=== PATIENT | female | born 1945 | race American Indian/Alaskan Native ===

== ENCOUNTER 2018-03-18 13:01 | Emergency (ER) | payer MEDICARE ==
[2018-03-18 14:00] LABS: Basophils % (Auto) 0.4 % (0.0-1.8); Eosinophils # (Auto) 0.3 K/mm3 (0.0-0.4); Eosinophils % (Auto) 2.9 % (0.0-4.3); Hematocrit 44.3 % (30.3-42.9); Hemoglobin 14.6 gm/dl (10.1-14.3); Lymphocytes # (Auto) 1.7 K/mm3 (1.2-5.4); Lymphocytes % (Auto) 15.2 % (13.4-35.0); Mean Corpuscular HGB Conc 33 % (30-34); Mean Corpuscular Hemoglobin 30 pg (28-32); Mean Corpuscular Volume 91 fl (79-97); Monocytes # (Auto) 0.7 K/mm3 (0.0-0.8); Monocytes % (Auto) 6.4 % (0.0-7.3); Platelet Count 305 K/mm3 (140-440); Red Cell Distribution Width 13.9 % (13.2-15.2)
[2018-03-18 14:18] LABS: Alanine Aminotransferase 8 units/L (7-56); Albumin 2.8 g/dL (3.9-5); BUN/Creatinine Ratio 24; Blood Urea Nitrogen 12 mg/dL (7-17); Calcium 9.6 mg/dL (8.4-10.2); Hemolysis Index 9
[2018-03-18] MEDS ORDERED: ZOFRAN ODT PO PRN (14:39)
--- NOTE | 2018-03-18 14:40 | Emergency Department Report ---
ED General Adult HPI - General Chief complaint: Nausea/Vomiting/Diarrhea Stated complaint: DIARRHEA Time Seen by Provider: 03/18/18 14:15 Source: patient, family, EMS (ems notes not available at time of chart dictation), RN notes reviewed, old records reviewed Mode of arrival: Stretcher Limitations: Physical Limitation - History of Present Illness Initial comments: This is a 73-year-old female who is unknown to this provider previously. Past medical history includes morbid obesity, functional bedbound, congestive heart failure, depression. Patient is brought to the hospital by EMS for inability to care for self. Her daughter indicates that she was recently discharged home from a residential facility. Patient was post to have a special bed at home , as well as home care, which has not materialized. The patient endorses 2 episodes of nonbloody, nonbilious emesis which has since resolved. She describes diarrhea. She had 2 episodes of diarrhea today. The daughter indicates she can't care for the patient on her own. The patient denies headache, neck pain, chest pain, shortness of breath and abdominal pain. -: Gradual Consistency: constant Improves with: none Worsens with: none Associated Symptoms: nausea/vomiting, other (diarrhea). denies: confusion, chest pain, cough, diaphoresis, fever/chills, headaches, loss of appetite, malaise, rash, seizure, shortness of breath, syncope, weakness - Related Data Home Medications Medication Instructions Recorded Confirmed Last Taken Acetaminophen [Arthritis Pain 650 mg PO Q8H 03/18/18 03/18/18 Unknown Relief] Magnesium Hydroxide [Milk of 400 mg PO Q12H PRN 03/18/18 03/18/18 Unknown Magnesia] Omeprazole 20 mg PO QAM 03/18/18 03/18/18 Unknown Sertraline [Zoloft] 12.5 mg PO QDAY 03/18/18 03/18/18 Unknown Triamcinolone 0.1% [Kenalog 0.1% 1 applic TP TID PRN 03/18/18 03/18/18 Unknown CREAM] Zolpidem Tartrate [Ambien] 5 mg PO QHS 03/18/18 03/18/18 Unknown traMADol [Ultram] 50 mg PO Q8H PRN 03/18/18 03/18/18 Unknown Previous Rx's Medication Instructions Recorded Last Taken Type Furosemide [Lasix] 40 mg PO DAILY #30 tablet 07/02/14 Unknown Rx Metoprolol [Lopressor TAB] 50 mg PO BID #60 tablet 07/02/14 Unknown Rx Nitrofurantoin [place]/M-Cryst 100 mg PO Q12HR #13 capsule 03/19/18 Unknown Rx [Macrobid CAP] Ondansetron [Zofran Odt] 4 mg PO Q8HR PRN #20 tab.rapdis 03/19/18 Unknown Rx Allergies Allergy/AdvReac Type Severity Reaction Status Date / Time No Known Allergies Allergy Verified 06/27/14 21:50 ED Review of Systems ROS: Stated complaint: DIARRHEA Other details as noted in HPI Comment: All other systems reviewed and negative ED Past Medical Hx - Past Medical History Hx Hypertension: Yes Hx Congestive Heart Failure: Yes Hx Diabetes: Yes ([id number]) Hx Arthritis: Yes (Both shoulder) Hx Kidney Stones: Yes (5 years) Hx HIV: No - Surgical History Additional Surgical History: exploratory uterine surgery-thought it was cancer, but was benign. tubal ligation - Social History Smoking Status: Never Smoker - Medications Home Medications: Home Medications Medication Instructions Recorded Confirmed Last Taken Type Furosemide [Lasix] 40 mg PO DAILY #30 tablet 07/02/14 03/18/18 Unknown Rx Metoprolol [Lopressor TAB] 50 mg PO BID #60 tablet 07/02/14 03/18/18 Unknown Rx Acetaminophen [Arthritis Pain 650 mg PO Q8H 03/18/18 03/18/18 Unknown History Relief] Magnesium Hydroxide [Milk of 400 mg PO Q12H PRN 03/18/18 03/18/18 Unknown History Magnesia] Omeprazole 20 mg PO QAM 03/18/18 03/18/18 Unknown History Sertraline [Zoloft] 12.5 mg PO QDAY 03/18/18 03/18/18 Unknown History Triamcinolone 0.1% [Kenalog 0.1% 1 applic TP TID PRN 03/18/18 03/18/18 Unknown History CREAM] Zolpidem Tartrate [Ambien] 5 mg PO QHS 03/18/18 03/18/18 Unknown History traMADol [Ultram] 50 mg PO Q8H PRN 03/18/18 03/18/18 Unknown History Nitrofurantoin [place]/M-Cryst 100 mg PO Q12HR #13 capsule 03/19/18 Unknown Rx [Macrobid CAP] Ondansetron [Zofran Odt] 4 mg PO Q8HR PRN #20 tab.rapdis 03/19/18 Unknown Rx ED Physical Exam - General Limitations: Physical Limitation General appearance: alert, in no apparent distress - Head Head exam: Present: atraumatic, normocephalic - Eye Eye exam: Present: normal appearance, EOMI. Absent: nystagmus - ENT ENT exam: Present: normal exam, normal orophraynx, mucous membranes moist, normal external ear exam - Neck Neck exam: Present: normal inspection, full ROM - Respiratory Respiratory exam: Present: normal lung sounds bilaterally. Absent: respiratory distress - Cardiovascular Cardiovascular Exam: Present: regular rate, normal rhythm, normal heart sounds. Absent: systolic murmur, diastolic murmur, rubs, gallop - GI/Abdominal GI/Abdominal exam: Present: soft, normal bowel sounds. Absent: distended, tenderness, guarding, rebound, rigid - Rectal Rectal exam: Present: normal inspection, other (solid stool is noted on the posterior gluteal region. There is sacral redness. There is no sacral breakdown.) - Extremities Exam Extremities exam: Present: normal inspection, full ROM, pedal edema, other ( there is no palpable cord. There is a negative Homans sign. The compartments are soft.). Absent: tenderness, calf tenderness - Back Exam Back exam: Present: normal inspection, full ROM. Absent: paraspinal tenderness , vertebral tenderness - Neurological Exam Neurological exam: Present: alert, oriented X3, CN II-XII intact, other ( Extraocular movements intact. Tongue midline. No facial droop. Facial sensation intact to light touch in the V1, V2, V3 distribution bilaterally. 5 and 5 strength in 4 extremities.. Sensation is intact to light touch in 4 extremities.). Absent: motor sensory deficit - Psychiatric Psychiatric exam: Present: normal affect, normal mood - Skin Skin exam: Present: warm, dry, intact, normal color. Absent: rash ED Course Vital Signs 03/18/18 03/18/18 03/18/18 13:16 17:18 22:39 Temperature 97.8 F Pulse Rate 95 H 92 H Respiratory 16 20 20 Rate Blood Pressure 122/51 Blood Pressure 155/83 [Right] O2 Sat by Pulse 92 97 Oximetry 03/18/18 03/19/1803/19/18 22:44 00:00 07:10 Temperature 97.6 F 98.8 F Pulse Rate 92 H 94 H 86 Respiratory 18 18 Rate Blood Pressure 155/83 Blood Pressure 145/87 139/78 [Right] O2 Sat by Pulse 97 97 Oximetry 03/19/18 03/19/18 03/19/18 10:31 14:17 18:46 Temperature 97.3 F L 98.4 F Pulse Rate 89 82 87 Respiratory 18 17 Rate Blood Pressure 159/76 Blood Pressure 139/52 158/67 [Right] O2 Sat by Pulse 95 98 Oximetry - Reevaluation(s) Reevaluation #1: 03/19/18 10:11 The patient has been in the emergency room overnight without any untoward events. She was seen and evaluated by case management. Apparently, the patient was in a residential home, and requested to leave after being there for 2 years. Case management is coordinating for home outpatient resources. They further indicate that the patient's insurance company has denied her claim for a hospital bed. Case management is also going to follow up with the patient's daughter. The patient has remained in the ER overnight without any untoward medical events, medically she is suitable to go home, and I will defer to case management to further manage her various outpatient social issues. ED Medical Decision Making - Lab Data Result diagrams: 03/18/18 13:25 03/18/18 13:25 Vital Signs 03/18/18 13:16 Temperature 97.8 F Pulse Rate 95 H Respiratory 16 Rate Blood Pressure 122/51 O2 Sat by Pulse 92 Oximetry Lab Results 03/18/18 03/18/18 03/18/18 Range/Units 13:25 13:25 14:55 WBC 11.1 H (4.5-11.0) K/mm3 RBC 4.90 (3.65-5.03) M/mm3 Hgb 14.6 H (10.1-14.3) gm/dl Hct 44.3 H (30.3-42.9) % MCV 91 (79-97) fl MCH 30 (28-32) pg MCHC 33 (30-34) % RDW 13.9 (13.2-15.2) % Plt Count 305 (140-440) K/mm3 Lymph % (Auto) 15.2 (13.4-35.0) % [place] % (Auto) 6.4 (0.0-7.3) % Eos % (Auto) 2.9 (0.0-4.3) % Baso % (Auto) 0.4 (0.0-1.8) % Lymph # 1.7 (1.2-5.4) K/mm3 [place] # 0.7 (0.0-0.8) K/mm3 Eos # 0.3 (0.0-0.4) K/mm3 Baso # 0.0 (0.0-0.1) K/mm3 Seg Neutrophils % 75.1 H (40.0-70.0) % Seg Neutrophils # 8.3 H (1.8-7.7) K/mm3 Sodium 142 (137-145) mmol/L Potassium 4.3 (3.6-5.0) mmol/L Chloride 103.5 (98-107) mmol/L Carbon Dioxide 23 (22-30) mmol/L Anion Gap 20 mmol/L BUN 12 (7-17) mg/dL Creatinine 0.5 L (0.7-1.2) mg/dL Estimated GFR > 60 ml/min BUN/Creatinine Ratio 24 % Glucose 124 H (65-100) mg/dL Calcium 9.6 (8.4-10.2) mg/dL Total Bilirubin 0.30 (0.1-1.2) mg/dL AST 15 (5-40) units/L ALT 8 (7-56) units/L Alkaline Phosphatase 78 (35-129) units/L Total Creatine Kinase < 7 L (30-135) units/L Total Protein 7.6 (6.3-8.2) g/dL Albumin 2.8 L (3.9-5) g/dL Albumin/Globulin Ratio 0.6 % Urine Color (Yellow) Urine Turbidity (Clear) Urine pH (5.0-7.0) Ur Specific [place] (1.003-1.030) Urine Protein (Negative) mg/dL Urine Glucose (UA) (Negative) mg/dL Urine Ketones (Negative) mg/dL Urine Blood (Negative) Urine Nitrite (Negative) Urine Bilirubin (Negative) Urine Urobilinogen (<2.0) mg/dL Ur Leukocyte Esterase (Negative) Urine WBC (Auto) (0.0-6.0) /HPF Urine RBC (Auto) (0.0-6.0) /HPF U Epithel Cells (Auto) (0-13.0) /HPF Urine Bacteria (Auto) (Negative) /HPF Urine WBC Clumps /HPF Urine Mucus /HPF Urine Yeast (Budding) /HPF Urine Sperm (WHITING [employer] WORKER) /HPF 03/18/18 Range/Units 15:20 WBC (4.5-11.0) K/mm3 RBC (3.65-5.03) M/mm3 Hgb (10.1-14.3) gm/dl Hct (30.3-42.9) % MCV (79-97) fl MCH (28-32) pg MCHC (30-34) % RDW (13.2-15.2) % Plt Count (140-440) K/mm3 Lymph % (Auto) (13.4-35.0) % [place] % (Auto) (0.0-7.3) % Eos % (Auto) (0.0-4.3) % Baso % (Auto) (0.0-1.8) % Lymph # (1.2-5.4) K/mm3 [place] # (0.0-0.8) K/mm3 Eos # (0.0-0.4) K/mm3 Baso # (0.0-0.1) K/mm3 Seg Neutrophils % (40.0-70.0) % Seg Neutrophils # (1.8-7.7) K/mm3 Sodium (137-145) mmol/L Potassium (3.6-5.0) mmol/L Chloride (98-107) mmol/L Carbon Dioxide (22-30) mmol/L Anion Gap mmol/L BUN (7-17) mg/dL Creatinine (0.7-1.2) mg/dL Estimated GFR ml/min BUN/Creatinine Ratio % Glucose (65-100) mg/dL Calcium (8.4-10.2) mg/dL Total Bilirubin (0.1-1.2) mg/dL AST (5-40) units/L ALT (7-56) units/L Alkaline Phosphatase (35-129) units/L Total Creatine Kinase (30-135) units/L Total Protein (6.3-8.2) g/dL Albumin (3.9-5) g/dL Albumin/Globulin Ratio % Urine Color Yellow (Yellow) Urine Turbidity Clear (Clear) Urine pH 5.0 (5.0-7.0) Ur Specific [place] 1.019 (1.003-1.030) Urine Protein 30 mg/dl (Negative) mg/dL Urine Glucose (UA) Neg (Negative) mg/dL Urine Ketones Tr (Negative) mg/dL Urine Blood Lg (Negative) Urine Nitrite Neg (Negative) Urine Bilirubin Neg (Negative) Urine Urobilinogen 2.0 (<2.0) mg/dL Ur Leukocyte Esterase Sm (Negative) Urine WBC (Auto) > 182.0 H (0.0-6.0) /HPF Urine RBC (Auto) > 182.0 (0.0-6.0) /HPF U Epithel Cells (Auto) 1.0 (0-13.0) /HPF Urine Bacteria (Auto) 1+ (Negative) /HPF Urine WBC Clumps 3+ /HPF Urine Mucus Few /HPF Urine Yeast (Budding) 2+ /HPF Urine Sperm Few (WHITING CAN WORKER) /HPF - Medical Decision Making Differential diagnosis, including the not limited to: Diarrhea, debility urinary tract infection, C. difficile Assessment and plan: 73-year-old female with a primary complaint of diarrhea. On my direct physical examination her stool is fully formed and solid. It is not draining or foul-smelling. Has had 2 episodes of diarrhea in the past 24 hours, no fever, no white count, unlikely to be C. difficile. Her physical exam is unremarkable, urinalysis suggested a cystitis. The patient is morbidly obese, and is functionally bedbound. She needs assistance at home which her family cannot provide. Unfortunately, case management is not currently present at this time. Case management consult has been ordered. Nursing staff is going to reconcile the patient's home medications. Care is transferred to the oncoming physician, Dr. Head, who in turn will likely have to turn the patient over to the overnight doctor. I would back tomorrow at 6:00 in the morning, and will also follow up with case management. Patient will part placement. Her urinalysis is appreciated, and she'll be started empirically on Macrobid. Review of old cultures from 2016 demonstrated sensitivity to Macrobid. , Critical care attestation.: If time is entered above; I have spent that time in minutes in the direct care of this critically ill patient, excluding procedure time. ED Disposition Clinical Impression: Debility Disposition: DC-01 TO HOME OR SELFCARE Is pt being admited?: No Does the pt Need Aspirin: No Condition: Good Instructions: Obesity (ED) Additional Instructions: Cultures were sent today, results will be available in the next 3-5 days. Have your primary care doctor contact the medical records office to obtain culture results. Follow-up with a primary care doctor within the next 7 days. Continue current outpatient medications. Return to the ER right away with new pain, worsened pain, migration of pain, fevers, chills, lethargy, irritability, projectile vomiting, change in mental status, confusion, inability to tolerate liquid feeds. Prescriptions: Nitrofurantoin [place]/M-Cryst [Macrobid CAP] 100 mg PO Q12HR #13 capsule Ondansetron [Zofran Odt] 4 mg PO Q8HR PRN #20 tab.rapdis PRN Reason: Nausea Referrals: PRIMARY CAREMD [Primary Care Provider] - 3-5 Days HAMIDA MCCARTHY MD [Staff Physician] - 3-5 Days
[2018-03-18 15:38] LABS: Bacteria,Urine 1+ /HPF (Negative); Bilirubin,Urine NEG (Negative); Blood,Urine LG (Negative); Color,Urine Yellow (Yellow); Mucus,Urine FEW /HPF; Sperm,Urine FEW /HPF (NP)
[2018-03-18 15:42] LABS: RBC,Urine > 182.0 /HPF (0.0-6.0); WBC,Urine > 182.0 /HPF (0.0-6.0)
[2018-03-18] MEDS ORDERED: TYLENOL PO PRN (15:51)
[2018-03-18] MEDS ORDERED: MOTRIN PO ONE (15:51)
[2018-03-18] MEDS ORDERED: ULTRAM PO PRN (16:12)
[2018-03-18] MEDS ORDERED: KENALOG TP PRN (16:12)
[2018-03-18] MEDS ORDERED: MILK OF MAGNESIA PO PRN (17:00)
[2018-03-18] MEDS: MACROBID PO SCH ×2 (18:19→22:43)
[2018-03-18] MEDS: ASPIRIN PO SCH (18:20)
[2018-03-18] MEDS: LASIX PO SCH (20:06)
[2018-03-18] MEDS: ZOLOFT PO SCH (20:24)
[2018-03-18] MEDS: LOPRESSOR PO SCH (22:44)
[2018-03-19] MEDS ORDERED: PROTONIX PO SCH (10:00)
[2018-03-19] MEDS ORDERED: NON-FORMULARY (Omeprazole [Omeprazole] 20 MG) PO SCH (10:00)
[2018-03-19] MEDS ORDERED: LOPRESSOR ONE (10:18)
[2018-03-19] MEDS ORDERED: ZOLOFT ONE (10:18)
[2018-03-19] MEDS ORDERED: LASIX ONE (10:18)
[2018-03-19] MEDS: LASIX PO SCH (10:31)
[2018-03-19] MEDS: ASPIRIN PO SCH (10:31)
[2018-03-19] MEDS: LOPRESSOR PO SCH (10:31)
[2018-03-19] MEDS: MACROBID PO SCH (10:32)
[2018-03-19] MEDS: ZOLOFT PO SCH (10:32)
[2018-03-19 18:47] VITALS: BP 158/67
== END 2018-03-19 18:57 | disposition home or self-care (01) ==
LOC: ED 13:01
DX: R53.81 Other malaise (principal); I10 Essential (primary) hypertension; I50.9 Heart failure, unspecified; E11.9 Type 2 diabetes mellitus without complications; M19.90 Unspecified osteoarthritis, unspecified site; Z87.442 Personal history of urinary calculi
CPT/HCPCS: 36415; 51701; 80053; 81001; 82550; 85025; 87086